=== PATIENT | male | born 1970 | race Caucasian/White ===

== ENCOUNTER 2016-07-02 11:48 | Emergency (ER) | payer BC ==
[2016-07-02] MEDS ORDERED: KETAMINE HCL 500 MG/10 ML VIAL ONE (12:42)
[2016-07-02] MEDS ORDERED: CLINDAMYCIN/D5W 50 ML IV ONE (12:42)
[2016-07-02] MEDS ORDERED: BUPIVACAINE HCL/PF 0.5% 30 ML VIAL ONE (13:20)
--- NOTE | 2016-07-02 14:29 | ER PHYSICIAN DOCUMENTATION ---
Physician Documentation [facility] Name:Talon Graham Age:46 yrs Sex:Male :1970 Arrival Date:07/02/2016 Time:11:48 Bed4 Private MD:Meg Sapp ED, Tom Disposition: 07/02 20:18 Chart complete. tl1 Disposition: 07/02/16 13:56 Discharged to Home/Self Care. Impression: Denise-Anal Abscess. - Condition is Good. - Discharge Instructions: DENISE-ANAL ABSCES, I and D. - Prescriptions for Clindamycin HCl 150 mg Oral - take 3 capsule by ORAL route every 6 hours for 7 days; 28 capsule. [place] 7.5- 325 mg Oral Tablet - take 1 tablet by ORAL route every 6 hours As needed; 20 tablet. Zofran 4 mg Oral Tablet - take 1-2 tablet by ORAL route every 4-6 hours As needed; 10 tablet. - Medical Reconciliation form form. - Follow up: Chilango Hair MD; When: 2 - 3 days; Reason: Recheck today's complaints, Continuance of care. - Problem is new. - Symptoms have improved. HPI: 11:57 This 46 yrs old Male presents to ER with complaints of Wound Check. tl1 11:57 5 days ago he had an I&D of an abscess with Dr Hair. He was doing OK at his first tl1 check up 3 days ago, but over the last 2 days he has noted increased pain, swelling and foul smelling d/c. No f/c/s.. Historical: - Allergies: Sulfa (Sulfonamide Antibiotics); - Home Meds: 1. Colchicine Oral for Gout 2. allopurinol Oral - PMHx: GOUT; - PSHx: toe; - Tetanus: unknown will f/u with PCP. - Immunization history: Pneumococcal vaccine status is unknown. - Ebola Screening: : Patient negative for fever greater than or equal to 101.5 degrees Fahrenheit, and additional compatible Ebola Virus Disease symptoms. Patient denies exposure to infectious person. Patient denies travel to an Ebola-affected area in the 21 days before illness onset. No symptoms or risks identified at this time. . - Social history: Smoking status: Patient states former smoker of tobacco. ROS: 12:10 Skin: Positive for abscess. tl1 12:10 All other systems are negative. Exam: 12:11 Constitutional: This is a well developed, well nourished patient who is awake, alert, tl1 and in no acute distress. 12:11 Head/Face: Normocephalic, atraumatic. tl1 12:11 Neck: ROM/movement: is normal, is supple. 12:11 Cardiovascular: Rate: normal. 12:11 Respiratory: the patient does not display signs of respiratory distress, Respirations: normal. 12:11 : left lower inferior gluteal/perianal area indurated red, and tender with a 2 mm central hole draining foul smelling milky/light purdy purulent material. 12:11 Musculoskeletal/extremity: Exam is negative for acute changes. 12:11 Skin: Exam negative for acute changes, except as above.. Vital Signs: 11:54 BP 136 / 80; Pulse 97; Resp 16; Temp 98.6(O); Pulse Ox 93% on R/A; Weight 97.52 kg (R); arc Height 5 ft. 11 in. (180.34 cm) (R); Pain 9/10; 13:00 BP 104 / 59 (auto/); tg 13:05 Pulse Ox 96% ; tg 13:15 BP 115 / 82 (auto/); Pulse 74; Resp 16; Pulse Ox 96% on R/A; tg 13:33 BP 138 / 82 (auto/); Pulse 81; Resp 16; Pulse Ox 94% on R/A; tg 11:54 Body Mass Index 29.99 (97.52 kg, 180.34 cm) arc Procedures: 12:15 I & D: Incision and drainage was performed for an abscess of the left perianal area. tl1 Prepped with Betadine, Anesthetized with Marcaine 0.5%. Incised with #11 blade. Drained moderate amount purulent fluid. Loculations removed. Packed with iodoform gauze, the patient tolerated the procedure well, He received 25 mg of IV ketamine just prior to the procedure.. MDM: 11:57 Patient medically screened. tl1 12:19 Data reviewed: vital signs, nurses notes, old medical records, and as a result, I will tl1 discharge patient. Counseling: I had a detailed discussion with the patient and/or guardian regarding: the historical points, exam findings, and any diagnostic results supporting the discharge/admit diagnosis, the need for outpatient follow up, to return to the emergency department if symptoms worsen or persist or if there are any questions or concerns that arise at home. Medication response: Response to treatment: the patient's symptoms have markedly improved after treatment, and as a result, I will discharge patient. ED course: He tolerated the procedure well. Dispensed Medications: 12:39 Drug: Clindamycin 900 mg; Volume: 50 ml; Route: IVPB; Infused Over: 30 mins; Site: left tg antecubital; Delivery: Pump; 13:10 Follow up: IV Status: Completed infusion; IV Intake: 50ml tg 12:39 Drug: NS 0.9% 1000 ml; Route: IV; Rate: bolus; Site: left antecubital; Delivery: tg [place] Tubing; 13:24 Follow up: IV Status: Completed infusion; IV Intake: 1000ml tg 13:05 Drug: Ketamine 0.25 mg/kg; Route: IVP; Site: left antecubital; tg 13:34 Follow up: Response: Pain is decreased tg 13:25 Drug: Marcaine (0.5 %) 10 ml; Route: Infiltration; tg 13:25 Follow up: Response: No adverse reaction tg Signatures: Jacob Holt RN RN tg Manuela Sood RN RN nf Leigh, Tom, MD MD tl1
--- NOTE | 2016-07-02 14:29 | ER NURSING DOCUMENTATION ---
Nurse's Notes [facility] Name:Talon Graham Age:46 yrs Sex:Male :1970 Arrival Date:07/02/2016 Time:11:48 Bed4 Private MD:Meg Sapp Diagnosis:Denise-Anal Abscess Presentation: 07/02 11:50 Acuity: TALON 5 tg 12:15 Presenting complaint: Patient states: Had an I&D with Dr. Hair earlier this week. tg wound has been becoming more swollen, tender, and oozing pus. No ABX. Transition of care: patient was not received from another setting of care. 12:15 Acuity: TALON 3 tg 12:15 Method Of Arrival: Private Vehicle tg Triage Assessment: 12:19 General: Appears uncomfortable, Behavior is cooperative. Pain: Complains of pain in tg left side of glute. Derm: Skin is pink, warm & dry. Abscess located on left glute has purulent drainage, has foul odor, is red, is raised. Historical: - Allergies: Sulfa (Sulfonamide Antibiotics); - Home Meds: 1. Colchicine Oral for Gout 2. allopurinol Oral - PMHx: GOUT; - PSHx: toe; - Tetanus: unknown will f/u with PCP. - Immunization history: Pneumococcal vaccine status is unknown. - Ebola Screening: : Patient negative for fever greater than or equal to 101.5 degrees Fahrenheit, and additional compatible Ebola Virus Disease symptoms. Patient denies exposure to infectious person. Patient denies travel to an Ebola-affected area in the 21 days before illness onset. No symptoms or risks identified at this time. . - Social history: Smoking status: Patient states former smoker of tobacco. Screenin:20 Infectious Disease Risk Unable to Obtain. Abuse screen: Denies threats or abuse. Denies tg injuries from another. Nutritional screening: No deficits noted. Assessment: 12:21 Reassessment: Pt drove self here. Dr. Abdi had discussion with patient about need to tg wait in the ED for effects of [place] to wear off or to get a ride from someone else if he does not want to wait. . 13:34 Reassessment: Pt awake, alert, oriented. reports feeling that the effects of the tg ketamine have largely passed. Pt still "shaky and woozy," but otherwise no complaints reported.. Vital Signs: 11:54 BP 136 / 80; Pulse 97; Resp 16; Temp 98.6(O); Pulse Ox 93% on R/A; Weight 97.52 kg (R); arc Height 5 ft. 11 in. (180.34 cm) (R); Pain 9/10; 13:00 BP 104 / 59 (auto/); tg 13:05 Pulse Ox 96% ; tg 13:15 BP 115 / 82 (auto/); Pulse 74; Resp 16; Pulse Ox 96% on R/A; tg 13:33 BP 138 / 82 (auto/); Pulse 81; Resp 16; Pulse Ox 94% on R/A; tg 11:54 Body Mass Index 29.99 (97.52 kg, 180.34 cm) arc ED Course: 11:49 Patient arrived in ED. arc 11:49 Meg Sapp MD is Private Physician. arc 11:50 Triage completed. tg 11:54 Warm blanket given. arc 11:57 Charlie Abdi MD is Attending Physician. tl1 12:20 Arm band placed on. tg 12:21 Valuables Remains with patient. tg 12:25 Inserted peripheral IV: 20 gauge in left antecubital area and blood collected. arc 12:39 Jacob Holt, RN is Primary Nurse. tg 13:25 Assist Provider Assist provider with I & D: of an abscess on left perianal Set up I&D tg tray. Performed by Charlie Abdi MD Wound packed. iodoform gauze, Dressing with 4X4s, tape Patient tolerated well. 13:55 Chilango Hair MD is Referral Physician. tl1 Administered Medications: 12:39 Drug: Clindamycin 900 mg; Volume: 50 ml; Route: IVPB; Infused Over: 30 mins; Site: left tg antecubital; Delivery: Pump; 13:10 Follow up: IV Status: Completed infusion; IV Intake: 50ml tg 12:39 Drug: NS 0.9% 1000 ml; Route: IV; Rate: bolus; Site: left antecubital; Delivery: tg [place] Tubing; 13:24 Follow up: IV Status: Completed infusion; IV Intake: 1000ml tg 13:05 Drug: Ketamine 0.25 mg/kg; Route: IVP; Site: left antecubital; tg 13:34 Follow up: Response: Pain is decreased tg 13:25 Drug: Marcaine (0.5 %) 10 ml; Route: Infiltration; tg 13:25 Follow up: Response: No adverse reaction tg Intake: 13:10 IV: 50ml; Total: 50ml. tg 13:24 IV: 1000ml; Total: 1050ml. tg Outcome: 13:56 Discharge ordered by . tl1 14:20 Discharged to home ambulatory, with family, with significant other. tg 14:20 Condition: stable 14:20 Discharge Assessment: Patient awake, alert and oriented x 3. No cognitive and/or functional deficits noted. Patient verbalized understanding of disposition instructions. 14:20 Instructed on discharge instructions, follow up and referral plans. medication usage, Prescriptions given X 3. 14:20 IV D/[place] 14:28 Patient left the ED. nf 07/03 13:23 Discharge F/U Call: Unable to reach: left voicemail: shavon Signatures: Jacob Holt RN RENEA Manuela Sood RN Charlie Chisholm MD MD tl1 Devora Luz, Sangita Martin, RN RENEA sands
== END 2016-07-02 14:28 | disposition home or self-care (01) ==
LOC: ER 11:48
DX: K61.0 Anal abscess (principal)
CPT/HCPCS: 96365; 96375; 99284